=== PATIENT | female | born 1965 | race Caucasian/White ===

== ENCOUNTER 2018-08-17 16:17 | Inpatient (IN) | payer OTHER ==
[2018-08-17 17:15] VITALS: BMI 21.9
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
[2018-08-17] MEDS ORDERED: MAGNESIUM HYDROX 2400MG/30ML ORAL SUSPENSION 30 ML CUP PO PRN (17:52)
[2018-08-17] MEDS ORDERED: ACETAMINOPHEN 325 MG TABLET (FP) PO PRN (17:52)
[2018-08-17] MEDS ORDERED: P-EPHED 60MG/TRIPROLIDI 2.5MG TABLET PO PRN (17:52)
[2018-08-17] MEDS ORDERED: IBUPROFEN 400 MG TABLET (FP) PO PRN (17:52)
[2018-08-17] MEDS ORDERED: MAG HYDROX/AL HYDROX/SIMETH 30 ML UNIT-DOSE CUP PO PRN (17:52)
[2018-08-17] MEDS ORDERED: MENTHOL/PHENOL 1 EACH UD MM PRN (17:52)
[2018-08-17] MEDS ORDERED: MAGNESIUM CITRATE 300 ML BOTTLE PO PRN (17:52)
[2018-08-17] MEDS ORDERED: TUBERCULIN PPD 5 TU/0.1ML VIAL ID ONE (21:22)
[2018-08-17] MEDS: THIAMINE HCL 100 MG TABLET (FP) PO SCH (21:23)
[2018-08-17] MEDS: traZODone HCL 50 MG TABLET (FP) PO SCH (21:23)
[2018-08-17] MEDS ORDERED: MELATONIN 5 MG TABLETS PO PRN (22:00)
[2018-08-17] MEDS ORDERED: PT OWN MED DRAWER 7, Y5N ONE (23:18)
[2018-08-18] MEDS ORDERED: PT OWN MED DRAWER 7, Y5N ONE ×2 (01:57→05:55)
[2018-08-18] MEDS ORDERED: ALBUTEROL SO4 2.5/IPRATROPIUM 0.5 INH SOL 3 ML VIAL.NEB. NEB ONE (02:00)
[2018-08-18] MEDS: AMOX TR/POT CLAV 500MG/125MG TABLETS (FP) PO SCH ×2 (07:16→16:49)
[2018-08-18] MEDS: ALBUTEROL SO4 8 GM HFA INHALER IH PRN ×2 (08:42→16:07)
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
[2018-08-18] MEDS: predniSONE 20 MG TABLET (UD) PO SCH (09:54)
[2018-08-18] MEDS: NICOTINE 21 MG/24 HOURS TOPICAL PATCH TD SCH (09:54)
[2018-08-18] MEDS: PRENATAL VITAMINS W/ FOLIC ACID TABLET (FP) PO SCH (09:55)
[2018-08-18 10:19] LABS: URINE APPEARANCE CLOUDY; URINE BILIRUBIN NEGATIVE (<2.0 mg/dL); URINE COLOR LTYELLOW; URINE GLUCOSE (UA) 1+ (NEGATIVE); URINE KETONE NEGATIVE (NEGATIVE); URINE LEUK ESTERASE NEGATIVE (NEGATIVE); URINE NITRITE NEGATIVE (NEGATIVE); URINE PROTEIN NEGATIVE (NEGATIVE); URINE UROBILINOGEN NEGATIVE mg/dL (0.2-1.0)
[2018-08-18] MEDS ORDERED: FLU VACCINE QUAD 60 MCG/0.5 ML (MDV 18-19) IM ONE (12:00)
[2018-08-18] MEDS: METHADONE HCL 10 MG TABLET PO SCH (12:08)
[2018-08-18] MEDS: ALBUTEROL SO4 2.5/IPRATROPIUM 0.5 INH SOL 3 ML VIAL.NEB. NEB PRN ×2 (12:49→19:55)
[2018-08-18] MEDS: hydrOXYzine PAMOATE 50 MG CAPSULE (FP) PO PRN (16:07)
[2018-08-18 16:37] LABS: ALBUMIN 3.6 g/dl (3.4-5.0); ALK PHOS 118 U/L (45-117); ANION GAP 7 MMOL/L (8-16); BILIRUBIN,TOTAL 0.2 mg/dL (0.2-1); BLOOD UREA NITROGEN 19 mg/dL (7-18); CALCIUM 9.5 mg/dL (8.5-10.1); CHLORIDE 101 mmol/L (98-107); CO2 28 mmol/L (21-32); CREATININE 0.7 mg/dL (0.55-1.3); GLUCOSE,RANDOM 121 mg/dL (74-106); HEMATOCRIT 39.2 % (32.4-45.2); HEMOGLOBIN 13.2 GM/dL (10.7-15.3); MCH 29.9 pg (25.7-33.7); MCHC 33.7 g/dl (32.0-36.0); MEAN CELL VOLUME 88.7 fl (80-96); MEAN PLT VOLUME 8.4 fl (7.5-11.1); PLATELET COUNT 371 K/MM3 (134-434); POTASSIUM 4.5 mmol/L (3.5-5.1); RBC 4.42 M/mm3 (3.60-5.2); RDW 14.6 % (11.6-15.6); SGOT/AST 15 U/L (15-37); SGPT/ALT 61 U/L (13-61); SODIUM 136 mmol/L (136-145); TOT PROT 7.4 g/dl (6.4-8.2)
[2018-08-18] MEDS: THIAMINE HCL 100 MG TABLET (FP) PO SCH (21:21)
[2018-08-18] MEDS: traZODone HCL 50 MG TABLET (FP) PO SCH (21:22)
[2018-08-18] MEDS: QUEtiapine FUMARATE 100 MG TABLET (FP) PO SCH (21:23)
[2018-08-19] MEDS: ALBUTEROL SO4 2.5/IPRATROPIUM 0.5 INH SOL 3 ML VIAL.NEB. NEB PRN (06:14)
[2018-08-19] MEDS: METHADONE HCL 10 MG TABLET PO SCH (06:25)
[2018-08-19] MEDS: AMOX TR/POT CLAV 500MG/125MG TABLETS (FP) PO SCH ×2 (07:09→17:31)
[2018-08-19 07:27] VITALS: BP 117/77; PULSE 83; TEMP 98.3
[2018-08-19] MEDS: predniSONE 20 MG TABLET (UD) PO SCH (09:56)
[2018-08-19] MEDS: NICOTINE 21 MG/24 HOURS TOPICAL PATCH TD SCH (09:56)
[2018-08-19] MEDS: PRENATAL VITAMINS W/ FOLIC ACID TABLET (FP) PO SCH (09:57)
[2018-08-19] MEDS: ALBUTEROL SO4 8 GM HFA INHALER IH PRN ×2 (09:58→17:02)
[2018-08-19] MEDS: hydrOXYzine PAMOATE 50 MG CAPSULE (FP) PO PRN (18:50)
[2018-08-19] MEDS: QUEtiapine FUMARATE 100 MG TABLET (FP) PO SCH (21:17)
[2018-08-19] MEDS: traZODone HCL 50 MG TABLET (FP) PO SCH (21:17)
[2018-08-19] MEDS: THIAMINE HCL 100 MG TABLET (FP) PO SCH (21:17)
[2018-08-20] MEDS: ALBUTEROL SO4 2.5/IPRATROPIUM 0.5 INH SOL 3 ML VIAL.NEB. NEB PRN ×3 (02:37→14:39)
[2018-08-20] MEDS: guaiFENesin/D-METHORPHAN HB 10 ML UNIT-DOSE CUPS PO PRN ×2 (02:39→16:43)
[2018-08-20] MEDS: hydrOXYzine PAMOATE 50 MG CAPSULE (FP) PO PRN (02:39)
[2018-08-20] MEDS: ALBUTEROL SO4 8 GM HFA INHALER IH PRN (06:37)
[2018-08-20] MEDS: AMOX TR/POT CLAV 500MG/125MG TABLETS (FP) PO SCH ×2 (07:32→16:42)
[2018-08-20] MEDS ORDERED: METHADONE HCL 10 MG TABLET PO SCH (10:00)
[2018-08-20] MEDS: PRENATAL VITAMINS W/ FOLIC ACID TABLET (FP) PO SCH (10:01)
[2018-08-20] MEDS: predniSONE 20 MG TABLET (UD) PO SCH (10:02)
[2018-08-20] MEDS: NICOTINE 21 MG/24 HOURS TOPICAL PATCH TD SCH (10:03)
--- NOTE | 2018-08-20 20:20 | DS ---
[facility] Detox Discharge Summary Admission Date: 08/17/18 Discharge Date: 08/20/18 - History Additional Comments: TC call from ANABEL Dooley that pt wants to leave unit. Pt confirmed she wants to leave, states she cannot stay any longer. States "I will continue to go to my out pt at my methadone program" ([facility], 1st av [facility]) States her counselor there is Paty (forgot her last name) and will follow up with her PMD Dr Kirkland at [address] [place] [address] and [place] [facility] (private clinic ) Denies SI/HI. Prescriptions of Augmentin (4 days supply) and Prednisone (7 days supply) were sent to [facility], [address] [place] [address] & [facility] per pt's request. Pt is A & Ox 3, had steady gait, in no acute distress, and understands that she is leaving against medical advice. - Physical Exam Results Vital Signs: Vital Signs Temperature 98.3 F 08/19/18 07:27 Pulse Rate 83 08/19/18 07:27 Respiratory Rate 16 08/20/18 03:30 Blood Pressure 117/77 08/19/18 07:27 O2 Sat by Pulse Oximetry (%) - Medication Discharge Medications: Ambulatory Orders Aleve 220 mg PO TID PRN 08/17/18 Amoxicillin/Clav 50 mg PO BID 08/17/18 Nicotine Patch 21 mg/24 hr 21 mg TD DAILY 08/17/18 Prednisone 40 mg PO DAILY 08/17/18 Trazodone HCl 150 mg PO HS 08/17/18 Fluticasone/Vilanterol [Breo Ellipta 100-25 Mcg INH] 1 each IH BID #1 blst.w.dev 08/20/18 - AMA Did Patient Leave Against Medical Advice: Yes
== END 2018-08-20 20:00 | disposition left against medical advice (07) | DRG 770 ==
LOC: YASAS 16:17 → Y3E 19:18
PROVIDERS: ADMIT Neuromusculoskeletal Medicine & OMM; ATTEND Neuromusculoskeletal Medicine & OMM
PROC: HZ42ZZZ Group Counseling for Substance Abuse Treatment, Cognitive-Behavioral (ICD-10-PCS; principal; 2018-08-17)
DX: F10.20 Alcohol dependence, uncomplicated (principal); F14.20 Cocaine dependence, uncomplicated; F19.24 Other psychoactive substance dependence with psychoactive substance-induced mood disorder; F43.10 Post-traumatic stress disorder, unspecified; Z87.01 Personal history of pneumonia (recurrent); J45.909 Unspecified asthma, uncomplicated; Z88.0 Allergy status to penicillin; Z91.013 Allergy to seafood
CPT/HCPCS: 36415; 80053; 81003; 85027; 86593; 87389; 90688; 94640; G0008